=== PATIENT | female | born 1945 | race Caucasian/White ===

== ENCOUNTER → 2016-09-13 | Outpatient (REF) | payer MEDICARE, MEDICAID ==
[~2016-09-13] MED LIST: ALBU17IN INH; ALBU83IN INH; ASPI81TA PO; ATOR40TA PO; BREO1INH3 INH; INCR1INH INH; PARO40TA PO; PRED20TA PO; PROP80CA PO; RAMI10CA PO
[2016-09-13 18:05] LABS: ALBUMIN 3.4 GM/DL (3.2-5.2); ALBUMIN/GLOBULIN RATIO 1.06 (1.00-1.93); ALKALINE PHOSPHATASE 60 U/L (45-117); ALT/SGPT 22 U/L (12-78); ANION GAP 12 MEQ/L (8-16); AST/SGOT 15 U/L (15-37); BILIRUBIN,TOTAL 0.4 MG/DL (0.2-1.0); BLOOD UREA NITROGEN 16 MG/DL (7-18); CALCIUM LEVEL 9.5 MG/DL (8.8-10.2); CARBON DIOXIDE LEVEL 29 MEQ/L (21-32); CHLORIDE LEVEL 104 MEQ/L (98-107); CREATININE FOR GFR 0.81 MG/DL (0.55-1.02); GLOMERULAR FILTRATION RATE > 60.0 (>39); GLUCOSE, FASTING 142 MG/DL (83-110); POTASSIUM SERUM 3.5 MEQ/L (3.5-5.1); SODIUM LEVEL 145 MEQ/L (136-145); TOTAL PROTEIN 6.6 GM/DL (6.4-8.2)
== END ==
LOC: M SFHCPLAZ 15:18
PROVIDERS: ATTEND Nurse Practitioner Family
DX: I10 Essential (primary) hypertension (principal)

== ENCOUNTER → 2016-12-16 | Outpatient (REF) | payer MEDICARE, MEDICAID ==
[~2016-12-16] MED LIST changes: -PARO40TA PO; +PARO40TA2 PO
[2016-12-16 18:56] LABS: BASO # 0.1 K/mm3 (0.0-0.2); BASO % 0.4 % (0.0-1.0); EOS # 0.1 K/mm3 (0.0-0.50); EOS % 0.4 % (0.0-3.0); LARGE UNSTAINED CELL # 0.3 K/mm3 (0.0-0.4); LARGE UNSTAINED CELL % 1.8 % (0.0-4.0); LYMPH # 2.4 K/mm3 (1.5-4.5); MEAN CORPUSCULAR HEMOGLOBIN 29.9 pg (27.0-33.0); MEAN CORPUSCULAR HGB CONC 31.9 g/dl (32.0-36.5); MEAN CORPUSCULAR VOLUME 93.6 fl (80.0-96.0); MONO # 0.8 K/mm3 (0.0-0.8); MONO % 4.3 % (0.0-5.0); NEUTROPHILS # 14.7 K/mm3 (1.8-7.7); NEUTROPHILS % 80.1 % (36.0-66.0); PLATELET COUNT, AUTOMATED 319 k/mm3 (150-450); RED CELL DISTRIBUTION WIDTH 14.3 % (11.5-14.5); WHITE BLOOD COUNT 18.4 K/mm3 (4.0-10.0)
[2016-12-16 19:15] LABS: ALBUMIN 3.7 GM/DL (3.2-5.2); ALBUMIN/GLOBULIN RATIO 1.19 (1.00-1.93); ALKALINE PHOSPHATASE 59 U/L (45-117); ALT/SGPT 21 U/L (12-78); ANION GAP 6 MEQ/L (8-16); AST/SGOT 16 U/L (15-37); BILIRUBIN,TOTAL 0.4 MG/DL (0.2-1.0); BLOOD UREA NITROGEN 22 MG/DL (7-18); CALCIUM LEVEL 9.4 MG/DL (8.8-10.2); CARBON DIOXIDE LEVEL 30 MEQ/L (21-32); CHLORIDE LEVEL 102 MEQ/L (98-107); CREATININE FOR GFR 0.74 MG/DL (0.55-1.02); GLOMERULAR FILTRATION RATE > 60.0 (>39); GLUCOSE, FASTING 98 MG/DL (83-110); POTASSIUM SERUM 3.4 MEQ/L (3.5-5.1); SODIUM LEVEL 138 MEQ/L (136-145); TOTAL PROTEIN 6.8 GM/DL (6.4-8.2)
== END ==
LOC: M SFHCPLAZ 15:32
PROVIDERS: ATTEND Nurse Practitioner Family
DX: J44.1 Chronic obstructive pulmonary disease with (acute) exacerbation (principal); I10 Essential (primary) hypertension

== ENCOUNTER → 2017-01-31 | Outpatient (REF) | payer MEDICARE, MEDICAID ==
[~2017-01-31] MED LIST changes: +ASPI1TAB15 PO; -ATOR40TA PO; +ATOR40TA75 PO; +CLAR1TAB2 PO; +DOXY100T2 PO; +MUCI600T37 PO; +PARO10TA3 PO; +POTA10CA PO; +PRED10TA2 PO
[2017-01-31 18:23] LABS: ANION GAP 10 MEQ/L (8-16); BLOOD UREA NITROGEN 19 MG/DL (7-18); CALCIUM LEVEL 9.6 MG/DL (8.8-10.2); CARBON DIOXIDE LEVEL 28 MEQ/L (21-32); CHLORIDE LEVEL 105 MEQ/L (98-107); CREATININE FOR GFR 0.82 MG/DL (0.55-1.02); GLOMERULAR FILTRATION RATE > 60.0 (>39); GLUCOSE, FASTING 158 MG/DL (83-110); POTASSIUM SERUM 4.2 MEQ/L (3.5-5.1); SODIUM LEVEL 143 MEQ/L (136-145)
== END ==
LOC: M SFHCPLAZ 14:59
PROVIDERS: ATTEND Nurse Practitioner Family
DX: E87.6 Hypokalemia (principal)

== ENCOUNTER → 2017-03-24 | Outpatient (REF) | payer MEDICARE, MEDICAID ==
[2017-03-24 12:37] LABS: BASO % 0.2 % (0.0-1.0); LARGE UNSTAINED CELL # 0.2 K/mm3 (0.0-0.4); LARGE UNSTAINED CELL % 1.6 % (0.0-4.0); LYMPH # 0.6 K/mm3 (1.5-4.5); LYMPH % 5.4 % (24.0-44.0); MEAN CORPUSCULAR HEMOGLOBIN 29.9 pg (27.0-33.0); MEAN CORPUSCULAR VOLUME 93.5 fl (80.0-96.0); MONO # 0.3 K/mm3 (0.0-0.8); MONO % 2.8 % (0.0-5.0); NEUTROPHILS # 9.9 K/mm3 (1.8-7.7); NEUTROPHILS % 89.9 % (36.0-66.0); PLATELET COUNT, AUTOMATED 331 k/mm3 (150-450)
[2017-03-24 12:52] LABS: ALBUMIN 3.2 GM/DL (3.2-5.2); ALBUMIN/GLOBULIN RATIO 0.97 (1.00-1.93); ALKALINE PHOSPHATASE 55 U/L (45-117); ALT/SGPT 21 U/L (12-78); ANION GAP 11 MEQ/L (8-16); AST/SGOT 20 U/L (15-37); BILIRUBIN,TOTAL 0.7 MG/DL (0.2-1.0); BLOOD UREA NITROGEN 34 MG/DL (7-18); CALCIUM LEVEL 9.5 MG/DL (8.8-10.2); CARBON DIOXIDE LEVEL 27 MEQ/L (21-32); CHLORIDE LEVEL 105 MEQ/L (98-107); CREATININE FOR GFR 0.86 MG/DL (0.55-1.02); GLOMERULAR FILTRATION RATE > 60.0 (>39); GLUCOSE, FASTING 110 MG/DL (83-110); POTASSIUM SERUM 4.7 MEQ/L (3.5-5.1); SODIUM LEVEL 143 MEQ/L (136-145); TOTAL PROTEIN 6.5 GM/DL (6.4-8.2)
== END ==
LOC: M SFHCPLAZ 09:45
PROVIDERS: ATTEND Nurse Practitioner Family
DX: D72.829 Elevated white blood cell count, unspecified (principal); I10 Essential (primary) hypertension

== ENCOUNTER 2017-03-28 16:59 | Inpatient (IN) | payer MEDICARE, MEDICAID ==
[~2017-03-28] VITALS: Ht 165.1 cm; Wt 43.9 kg
[~2017-03-28 16:59] MED LIST changes: -ASPI1TAB15 PO; -CLAR1TAB2 PO; -DOXY100T2 PO; -MUCI600T37 PO; -PARO10TA3 PO; -POTA10CA PO; -PRED10TA2 PO
[2017-03-28] MEDS ORDERED: methylPREDNISolone INJ 125 MG/2 ML VIAL (J2930) IV ONE (17:30)
[2017-03-28] MEDS: IPRATROPIUM 0.5MG/ALBUTEROL 2.5MG INH SOL UD 3ML (DUONEB)(J7620) NEB PRN ×3 (17:37→18:09)
[2017-03-28 17:40] LABS: ABG BASE EXCESS 4.5 (-2.0-2.0); ABG HCO3 29.5 MEQ/L (22.0-26.0); ABG PARTIAL PRESSURE CO2 45.3 mmHg (35.0-45.0); ABG PARTIAL PRESSURE O2 58.8 mmHg (75.0-100.0); ABG STANDARD HCO3 28.3 MEQ/L (22.0-26.0); ABG TOTAL CO2 30.9 MEQ/L (23.0-31.0); ABG pH (ARTERIAL) 7.431 UNITS (7.350-7.450)
[2017-03-28 17:43] LABS: BASO % 0.2 % (0.0-1.0); EOS % 0.1 % (0.0-3.0); IMMATURE GRANULOCYTE % 0.4 % (0-0); LYMPH # 1.5 10^3/uL (1.5-4.5); LYMPH % 14.3 % (24.0-44.0); MEAN CORPUSCULAR HEMOGLOBIN 28.7 pg (27.0-33.0); MEAN CORPUSCULAR VOLUME 92.6 fl (80.0-96.0); MONO # 0.8 10^3/uL (0.0-0.8); MONO % 7.6 % (0.0-5.0); NEUTROPHILS # 7.9 10^3/uL (1.8-7.7); NEUTROPHILS % 77.4 % (36.0-66.0); PLATELET COUNT, AUTOMATED 367 10^3/uL (150-450); RED CELL DISTRIBUTION WIDTH 14.1 % (11.5-14.5); WHITE BLOOD COUNT 10.2 10^3/uL (4.0-10.0)
[2017-03-28 18:10] LABS: ALBUMIN 2.9 GM/DL (3.2-5.2); ALBUMIN/GLOBULIN RATIO 0.64 (1.00-1.93); ALKALINE PHOSPHATASE 66 U/L (45-117); ALT/SGPT 20 U/L (12-78); ANION GAP 8 MEQ/L (8-16); AST/SGOT 26 U/L (15-37); BILIRUBIN,DIRECT 0.1 MG/DL (0.0-0.2); BILIRUBIN,TOTAL 0.5 MG/DL (0.2-1.0); BLOOD UREA NITROGEN 24 MG/DL (7-18); CALCIUM LEVEL 9.5 MG/DL (8.8-10.2); CARBON DIOXIDE LEVEL 31 MEQ/L (21-32); CHLORIDE LEVEL 103 MEQ/L (98-107); CREATININE FOR GFR 0.75 MG/DL (0.55-1.02); GLOMERULAR FILTRATION RATE > 60.0 (>39); GLUCOSE, FASTING 149 MG/DL (83-110); POTASSIUM SERUM 4.8 MEQ/L (3.5-5.1); SODIUM LEVEL 142 MEQ/L (136-145); THYROXINE (T4) 12.5 UG/DL (4.5-12.0); TOTAL PROTEIN 7.4 GM/DL (6.4-8.2)
--- NOTE | 2017-03-28 18:17 | ECGEPIP ---
Stationary ECG Study [facility] - ED Test Date: 2017-03-28 Pat Name: RAYMOND HERNANDEZ Department: Room: - Gender: F Parker: adrienne : 1945 Requested By: Leeann Leung Order Number: [id number] Reading MD: Jason Albert Measurements Intervals Ethel Rate: 81 P: 85 MA: 132 QRS: 18 QRSD: 84 T: 52 QT: 351 QTc: 408 Interpretive Statements [employer] RBBB Electronically Signed On 03-28-2017 18:16:46 EDT by Jason Albert
[2017-03-28] MEDS ORDERED: MOXIFLOXACIN HCL 400 MG in APPROPRIATE DILUENT 1 EA IV ONE (18:30)
[2017-03-28 18:36] VITALS: O2SAT 90
[2017-03-28] MEDS ORDERED: ASPI1TAB15 PO (19:22)
[2017-03-28] MEDS ORDERED: PARO10TA3 PO (19:22)
[2017-03-28] MEDS ORDERED: MUCI600T37 PO (19:22)
[2017-03-28] MEDS ORDERED: POTA10CA PO (19:22)
[2017-03-28] MEDS ORDERED: PRED10TA2 PO (19:22)
[2017-03-28] MEDS ORDERED: CLAR1TAB2 PO (19:22)
[2017-03-28] MEDS ORDERED: ONDANSETRON 4MG/2ML VIAL (J2405) IV PRN (20:45)
[2017-03-28] MEDS ORDERED: ACETAMINOPHEN TAB 650MG DOSE (2X325MG) PO PRN (20:45)
--- NOTE | 2017-03-28 22:00 | REPUSA ---
CT of the chest without contrast Clinical statement: pneumonia. Technique: Multiple axial CT images were obtained with 5 mm cuts through the chest without administra tion of contrast. No comparison is available. Findings: There is no thoracic lymphadenopathy. Mild atherosclerotic calcifications are seen througho ut the thoracic aorta, without evidence of aneurysm. The visualized portions of the thyroid gland is unremarkable. There are no pericardial or pleural effusions. There are moderately severe emphysematou s changes with chronic interstitial scarring bilaterally. Small foci of infiltrate appear to represen t chronic changes, and not an acute process. Limited imaging of the upper abdomen does not demonstrat e any acute abnormalities. There are no suspicious osseous lesions. Impression: Moderate emphysema and COPD. Scattered chronic interstitial changes bilaterally. No focal acute infiltrate or fusion.
[2017-03-28 22:10] VITALS: BP 129/66
[2017-03-28] MEDS: PANTOPRAZOLE 40MG INJ (PROTONIX) (C9113) IV SCH (22:37)
[2017-03-28] MEDS: ATORVASTATIN 20 MG TAB PO SCH (22:38)
[2017-03-28] MEDS: POTASSIUM CHLORIDE 10 MEQ SR TABLET PO SCH (22:38)
[2017-03-28] MEDS: RAMIPRIL 5 MG CAP PO SCH (22:38)
[2017-03-28] MEDS: SENOKOT S TAB PO SCH (22:39)
[2017-03-28] MEDS: methylPREDNISolone INJ 40 MG/1 ML VIAL (J2920) IV SCH (23:42)
[2017-03-29] VITALS: BP 127/60
[2017-03-29] MEDS: IPRATROPIUM 0.5MG/ALBUTEROL 2.5MG INH SOL UD 3ML (DUONEB)(J7620) NEB SCH ×7 (00:01→23:31)
[2017-03-29 04:00] VITALS: BP 121/62
[2017-03-29 05:39] LABS: MEAN CORPUSCULAR HEMOGLOBIN 28.8 pg (27.0-33.0); MEAN CORPUSCULAR HGB CONC 31.3 g/dl (32.0-36.5); MEAN CORPUSCULAR VOLUME 91.9 fl (80.0-96.0); PLATELET COUNT, AUTOMATED 348 10^3/uL (150-450); RED CELL DISTRIBUTION WIDTH 14.2 % (11.5-14.5); WHITE BLOOD COUNT 8.9 10^3/uL (4.0-10.0)
[2017-03-29 05:44] LABS: ADD MANUAL DIFFER YES; DIFF SLIDE NUMBER 70
--- NOTE | 2017-03-29 06:13 | REP ---
PORTABLE CHEST, ONE VIEW: HISTORY: Dyspnea. COMPARISON: 12/20/2016. The lungs are hyperinflated. An increase in interstitial markings is present in the lungs. Patchy density is present in the right lower lobe consistent with an infiltrate. The heart is normal in size. The pulmonary vasculature is normal in appearance. IMPRESSION: 1. Findings consistent with COPD. 2. Right lower lobe infiltrate. Signed by Ezio Ivory MD 03/29/2017 08:47 A
[2017-03-29 06:15] LABS: ANION GAP 9 MEQ/L (8-16); BLOOD UREA NITROGEN 27 MG/DL (7-18); CALCIUM LEVEL 9.4 MG/DL (8.8-10.2); CARBON DIOXIDE LEVEL 28 MEQ/L (21-32); CHLORIDE LEVEL 104 MEQ/L (98-107); CREATININE FOR GFR 0.74 MG/DL (0.55-1.02); GLOMERULAR FILTRATION RATE > 60.0 (>39); GLUCOSE, FASTING 239 MG/DL (83-110); POTASSIUM SERUM 4.4 MEQ/L (3.5-5.1); SODIUM LEVEL 141 MEQ/L (136-145); T UPTAKE 39 % (30-39); THYROXINE (T4) 10.5 UG/DL (4.5-12.0)
--- NOTE | 2017-03-29 06:18 | HPE ---
DATE OF ADMISSION: 03/28/2017 PRIMARY CARE PROVIDER: Brie Barfield NP CHIEF COMPLAINT: Increasing shortness of breath for the past four days, increasing cough, increasing sleepiness and lethargy. PAST MEDICAL HISTORY: 1. Chronic pulmonary obstructive disease (COPD). 2. Emphysema follows with Dr. Cortez. 3. Chronic hypoxic respiratory failure, supposed to be on home oxygen, does not use it. 4. Hypertension. 5. Hyperlipidemia. 6. Dysthymic disorder. 7. Protein calorie malnutrition. HISTORY OF PRESENT ILLNESS: This is a 71-year-old female with history of advanced emphysema and COPD on chronic home oxygen and chronic steroid therapy who has been having increasing shortness of breath for the past four days and inability to ambulate outside the room and has been sleeping more and almost unable to get out of bed. Today, she could hardly walk three steps because of her shortness of breath. She was brought to the emergency room. In the emergency department (ED) the patient was noted to be severely hypoxic requiring oxygenation through a Venti mask, 40% to maintain a saturation of 88-90%. She initially had a chest x-ray done which showed COPD and infiltration. There was some concern about infiltrate and possible pneumonia so a CT of the chest was done which did not show any infiltrate or effusion, it showed emphysema and COPD and chronic interstitial changes and interstitial scarring bilaterally. The patient was admitted to the hospitalist service for COPD exacerbation. PAST SURGICAL HISTORY: 1. Cataract surgery. 2. Breast biopsy. ALLERGIES: AUGMENTIN produces hives. HOME MEDICATIONS: - albuterol sulfate nebulized solution three times a day as needed for shortness of breath - albuterol sulfate two puffs inhalation every 4 hours as needed - aspirin 81 mg daily - atorvastatin 40 mg at bedtime - Breo Ellipta 200/25 one inhalation daily - Mucinex 600 mg by mouth daily - Incruse Ellipta 62.5 mcg inhalation every evening - Claritin 10 mg by mouth daily - paroxetine 10 mg by mouth daily - potassium chloride 10 mEq by mouth every evening - prednisone 10 mg by mouth daily - ramipril 10 mg by mouth every evening SOCIAL HISTORY: The patient continues to smoke about 5-7 cigarettes per day. She does not abuse alcohol or any recreational drugs. FAMILY HISTORY: Nothing significant. REVIEW OF SYSTEMS: The patient denies any fever or chills. She denies any chest pain. She has increased shortness of breath, increased cough with greenish colored phlegm production. PHYSICAL EXAMINATION: VITAL SIGNS: Temperature 96.5, pulse 100, blood pressure 124/60, respiratory rate 24, pulse oximetry 95% with 40% Venturi mask. GENERAL: Patient is awake, alert, oriented times three; however, moderately distressed and unable to speak in full sentences. HEENT: Normocephalic atraumatic. Moist mucous membranes. Anicteric eyes. CHEST: Bilateral diffuse wheezing. CARDIOVASCULAR: S1, s2, regular, tachycardic. No murmurs, rubs, gallops. ABDOMEN: Soft, nontender, bowel sounds present. EXTREMITIES: No edema. LABORATORY DATA: WBC 10.2, hemoglobin 12.8, platelets 367. Sodium 142, potassium 4.8, chloride 103, bicarbonate 31, BUN 24, creatinine 0.75, glucose 149, lactate 2.1, liver function tests are normal. T4 12.5. ASSESSMENT AND PLAN: This is a 71-year-old female admitted for chronic pulmonary obstructive disease (COPD) exacerbation and acute on chronic hypoxic respiratory failure. PLAN: 1. COPD exacerbation. Will continue the patient on DuoNebs, formoterol and budesonide nebulizers. Will also give methylprednisone. Will also give doxicycline. The patient received one dose of Avelox in the emergency department (ED). 2. Acute on chronic respiratory failure with hypoxia. The patient is supposed to use home oxygen; however, she does not use it as per doctor so here the patient was noted to require 40% Venturi mask to maintain saturation of 88-90, respiratory rate was 24. Her arterial blood gas (ABG) also showed hypoxia. The patient will continue with oxygen supplementation to maintain saturation of 88%. 3. Hypertension. Will continue home medications. 4. Hyperlipidemia. Will continue with home medications. 5. Dysthymic disorder. Will continue with paroxetine. 6. Abnormal T4 level. Will repeat a full thyroid profile. 7. Protein calorie malnutrition. Possibly related to advanced COPD. 8. Deep venous thrombosis (DVT) prophylaxis. Has been ordered. 9. Gastrointestinal (GI) prophylaxis. Will start the patient on pantoprazole as the patient is going to be steroids.
[2017-03-29] MEDS: FORMOTEROL FUMARATE 20 MCG/2 ML INHALATION SOLUTION (PERFOROMIST) INH SCH ×2 (07:59→19:52)
[2017-03-29] MEDS: BUDESONIDE 0.5 MG/2 ML INHALATION SUSPENSION INH SCH ×2 (07:59→19:52)
[2017-03-29 08:00] VITALS: BP 120/57
[2017-03-29] MEDS: ENOXAPARIN 30 MG/0.3 ML SYR (J1650) SC SCH (09:31)
[2017-03-29] MEDS: ASPIRIN 81 MG ENTERIC TAB PO SCH (09:31)
[2017-03-29] MEDS: DOXYCYCLINE HYCLATE 100 MG TAB PO SCH ×2 (09:31→20:47)
[2017-03-29] MEDS: guaiFENesin ER 600 MG TAB PO SCH (09:31)
[2017-03-29] MEDS: SENOKOT S TAB PO SCH ×2 (09:31→20:46)
[2017-03-29] MEDS: PARoxetine 10MG TABLET PO SCH (09:31)
[2017-03-29] MEDS: methylPREDNISolone INJ 40 MG/1 ML VIAL (J2920) IV SCH ×3 (09:32→23:29)
--- NOTE | 2017-03-29 11:09 | IPNPDOC ---
Subjective Date Seen The patient was seen on 03/29/17. Subjective Chief Complaint/HPI The patient is a 71-year-old female admitted with a reason for visit of Copd Exacerbation;Pneumonia. Events since last encounter Breathing feels better today Constitutional: Denies: Chills, Fever Pulmonary: Reports: Dyspnea (improved), Denies: Cough Cardiovascular: Denies: Chest Pain, Palpitations Gastrointestinal: Denies: Nausea, Vomiting, Abdominal Pain, Diarrhea, Constipation Objective Physical Examination General Exam: Positive: Alert, Moderate Distress (Wearing enti mask - breathing is labored at rest, but patient says her breathing is better) Chest Exam: Positive: Clear to auscultation (few scatterd exp wheezes with somewhat decreased BS) Heart Exam: Positive: Regular Rhythm, Negative: Rate Normal, Murmurs Abdomen Exam: Positive: Normal bowel sounds, Soft, Negative: Tenderness Extremity Exam: Negative: Edema Assessment /Plan Problems (1) COPD exacerbation Status: Acute Problem Text: Continue IV Solumedrol Doxycycline Oxygen via Venti mask currently - wean as tolerates Continue Pulmicort and Formoterol 03/28/17 CT chest: Moderate emphysema and COPD. Scattered chronic interstitial changes bilaterally. No focal acute infiltrate or fusion. (2) Hypertension Status: Chronic Response to Treatment: Stable (3) Hyperthyroidism Status: Chronic Problem Text: favor subclinical hyper 03/29/17 TSH <0.005, FTI 4.1-since 03/2016 up 11 pounds (88 to 99) s palpitations , check thyroid Ab-repeat as outpatient when not sick 03/15/16 TSH 0.3 Plan/VTE VTE Prophylaxis Ordered?: Yes (Lovenox) VS, I&O, 24H, Fishbone Vital Signs/I&O Vital Signs Date Time Temp Pulse Resp B/P (MAP) Pulse Ox O2 Delivery O2 Flow Rate FiO2 03/29/17 08:00 98.1 87 18 120/57 (78) 96 Venturi Mask 15.0 03/29/17 08:00 50 I&O- Last 24 Hours up to 6 AM 03/30/17 06:00 Intake Total 60 ml Output Total 300 ml Balance -240 ml Laboratory Data 24H LABS Laboratory Tests 2 03/28/17 17:23: White Blood Count 10.2H, Red Blood Count 4.46, Hemoglobin 12.8, Hematocrit 41.3 , Mean Corpuscular Volume 92.6, Mean Corpuscular Hemoglobin 28.7, Mean Corpuscular Hemoglobin Concent 31.0L, Red Cell Distribution Width 14.1, Platelet Count 367, Neutrophils (%) (Auto) 77.4H, Lymphocytes (%) (Auto) 14.3L, Monocytes (%) (Auto) 7.6H, Eosinophils (%) (Auto) 0.1, Basophils (%) (Auto) 0.2 , Neutrophils # (Auto) 7.9H, Lymphocytes # (Auto) 1.5, Monocytes # (Auto) 0.8, Eosinophils # (Auto) 0.0, Basophils # (Auto) 0.0, Immature Granulocyte # (Auto) 0.0, Nucleated Red Blood Cells % (auto) 0.0, Blood Gas Bicarbonate Standard 28.3H, Arterial Blood pH 7.431, Arterial Blood Partial Pressure CO2 45.3H, Arterial Blood Partial Pressure O2 58.8L, Arterial Blood Total CO2 30.9, Arterial Blood HCO3 29.5H, Arterial Blood Base Excess 4.5H, Arterial Blood Oxygen Saturation 89.3L, Anion Gap 8, Glomerular Filtration Rate > 60.0, Calcium Level 9.5, Aspartate Amino Transf (AST/SGOT) 26, Alanine Aminotransferase (ALT/SGPT) 20, Alkaline Phosphatase 66, Total Bilirubin 0.5, Direct Bilirubin 0.1, Total Creatine Kinase 65, Creatine Kinase MB 1.0, Creatine Kinase MB Relative Index 1.53, Troponin I 0.02, Total Protein 7.4, Albumin 2.9L, Albumin/Globulin Ratio 0.64L, Thyroxine (T4) 12.5H 03/28/17 19:04: Lactic Acid Level 2.1*H 03/28/17 23:32: Lactic Acid Followup at 4 Hours 1.4 03/29/17 05:15: White Blood Count 8.9, Red Blood Count 3.82L, Hemoglobin 11.0L, Hematocrit 35.1L , Mean Corpuscular Volume 91.9, Mean Corpuscular Hemoglobin 28.8, Mean Corpuscular Hemoglobin Concent 31.3L, Red Cell Distribution Width 14.2, Platelet Count 348, Neutrophils (%) (Auto) , Lymphocytes # (Auto) , Anion Gap 9 , Glomerular Filtration Rate > 60.0, Calcium Level 9.4, Thyroxine (T4) 10.5, Neutrophils 89H, Lymphocytes (Manual) 11L, Platelet Estimate NORMAL, Red Blood Cell Morphology NORMAL, Blood Urea Nitrogen 27H, Creatinine 0.74, Sodium Level 141, Potassium Level 4.4, Chloride Level 104, Carbon Dioxide Level 28, Thyroid Stimulating Hormone (TSH) < 0.005L, Free Thyroxine Index 4.1, Triiodothyronine ( T3) Uptake 39 CBC/BMP Laboratory Tests 03/28/17 17:23 Red Blood Count 4.46, Mean Corpuscular Volume 92.6, Mean Corpuscular Hemoglobin 28.7, Mean Corpuscular Hemoglobin Concent 31.0 L, Red Cell Distribution Width 14.1, Neutrophils (%) (Auto) 77.4 H, Lymphocytes (%) (Auto) 14.3 L, Monocytes (% ) (Auto) 7.6 H, Eosinophils (%) (Auto) 0.1, Basophils (%) (Auto) 0.2, Neutrophils # (Auto) 7.9 H, Lymphocytes # (Auto) 1.5, Monocytes # (Auto) 0.8, Eosinophils # (Auto) 0.0, Basophils # (Auto) 0.0 03/29/17 05:15 Red Blood Count 3.82 L, Mean Corpuscular Volume 91.9, Mean Corpuscular Hemoglobin 28.8, Mean Corpuscular Hemoglobin Concent 31.3 L, Red Cell Distribution Width 14.2, Neutrophils (%) (Auto) , Lymphocytes # (Auto) , Calcium Level 9.4 Microbiology Microbiology 03/28/17 Blood Culture, Received Pending 03/28/17 Blood Culture, Received Pending FARIDEH TRAVIS PA-C Mar 29, 2017 11:09 Jamal Ruiz M.D. Mar 29, 2017 16:23
[2017-03-29 12:00] VITALS: BP 126/65
[2017-03-29 16:00] VITALS: BP 130/68
[2017-03-29] MEDS ORDERED: MOXIFLOXACIN HCL 400 MG in APPROPRIATE DILUENT 1 EA IV SCH (18:00)
[2017-03-29 20:00] VITALS: BP 158/67
[2017-03-29] MEDS: PANTOPRAZOLE 40MG INJ (PROTONIX) (C9113) IV SCH (20:46)
[2017-03-29] MEDS: POTASSIUM CHLORIDE 10 MEQ SR TABLET PO SCH (20:47)
[2017-03-29] MEDS: ATORVASTATIN 20 MG TAB PO SCH (20:47)
[2017-03-29] MEDS: RAMIPRIL 5 MG CAP PO SCH (20:48)
[2017-03-30] VITALS: BP 148/65
[2017-03-30] MEDS: IPRATROPIUM 0.5MG/ALBUTEROL 2.5MG INH SOL UD 3ML (DUONEB)(J7620) NEB SCH ×5 (03:20→20:00)
[2017-03-30 04:00] VITALS: BP 100/50
[2017-03-30 05:24] LABS: IMMATURE GRANULOCYTE % 0.8 % (0-0); LYMPH # 0.7 10^3/uL (1.5-4.5); MEAN CORPUSCULAR HEMOGLOBIN 28.6 pg (27.0-33.0); MEAN CORPUSCULAR HGB CONC 31.2 g/dl (32.0-36.5); MEAN CORPUSCULAR VOLUME 91.8 fl (80.0-96.0); MONO # 0.5 10^3/uL (0.0-0.8); MONO % 4.6 % (0.0-5.0); NEUTROPHILS # 8.8 10^3/uL (1.8-7.7); NEUTROPHILS % 87.6 % (36.0-66.0); PLATELET COUNT, AUTOMATED 364 10^3/uL (150-450); WHITE BLOOD COUNT 10.1 10^3/uL (4.0-10.0)
[2017-03-30 05:53] LABS: ANION GAP 5 MEQ/L (8-16); BLOOD UREA NITROGEN 33 MG/DL (7-18); CALCIUM LEVEL 9.3 MG/DL (8.8-10.2); CARBON DIOXIDE LEVEL 29 MEQ/L (21-32); CHLORIDE LEVEL 106 MEQ/L (98-107); FREE T4 1.55 NG/DL (0.76-1.46); GLOMERULAR FILTRATION RATE > 60.0 (>39); GLUCOSE, FASTING 217 MG/DL (83-110); POTASSIUM SERUM 4.5 MEQ/L (3.5-5.1); SODIUM LEVEL 140 MEQ/L (136-145)
[2017-03-30] MEDS: FORMOTEROL FUMARATE 20 MCG/2 ML INHALATION SOLUTION (PERFOROMIST) INH SCH ×2 (07:18→20:15)
[2017-03-30] MEDS: BUDESONIDE 0.5 MG/2 ML INHALATION SUSPENSION INH SCH ×2 (07:18→20:15)
[2017-03-30 08:00] VITALS: BP 146/69
[2017-03-30] MEDS: guaiFENesin ER 600 MG TAB PO SCH (08:32)
[2017-03-30] MEDS: DOXYCYCLINE HYCLATE 100 MG TAB PO SCH ×2 (08:32→20:42)
[2017-03-30] MEDS: ASPIRIN 81 MG ENTERIC TAB PO SCH (08:32)
[2017-03-30] MEDS: methylPREDNISolone INJ 40 MG/1 ML VIAL (J2920) IV SCH (08:32)
[2017-03-30] MEDS: ENOXAPARIN 30 MG/0.3 ML SYR (J1650) SC SCH (08:32)
[2017-03-30] MEDS: SENOKOT S TAB PO SCH ×2 (08:32→20:43)
[2017-03-30] MEDS: PARoxetine 10MG TABLET PO SCH (08:32)
[2017-03-30 10:47] LABS: THYROID PEROXIDASE ANTIBODY < 28.0 U/ML (<60.0)
[2017-03-30 12:00] VITALS: BP 138/70
--- NOTE | 2017-03-30 12:57 | IPNPDOC ---
Subjective Date Seen The patient was seen on 03/30/17. Subjective Chief Complaint/HPI The patient is a 71-year-old female admitted with a reason for visit of Copd Exacerbation;Pneumonia. Events since last encounter breathing feels better - denies dyspnea Constitutional: Denies: Chills, Fever Pulmonary: Denies: Dyspnea, Cough Cardiovascular: Denies: Chest Pain, Palpitations Gastrointestinal: Denies: Nausea, Vomiting, Abdominal Pain, Diarrhea, Constipation Objective Physical Examination General Exam: Positive: Alert, Moderate Distress (Breathing appears more comfortable today) Chest Exam: Positive: Clear to auscultation, Negative: Rales, Rhonchi, Wheezing Heart Exam: Positive: Regular Rhythm, Negative: Rate Normal, Murmurs Abdomen Exam: Positive: Normal bowel sounds, Soft, Negative: Tenderness Extremity Exam: Negative: Edema Assessment /Plan Problems (1) COPD exacerbation Status: Acute Problem Text: 03/30 - improving - Continue to wean oxygen gradually - now on 3 liters NC - will likely need 2-3 liters at home D/c IV Solumedrol and start lower dose PO prednisone Doxycycline D2 Continue Pulmicort and Formoterol 03/28/17 CT chest: Moderate emphysema and COPD. Scattered chronic interstitial changes bilaterally. No focal acute infiltrate or fusion. (2) Hypertension Status: Chronic Response to Treatment: Stable (3) Hyperthyroidism Status: Chronic Problem Text: favor subclinical hyper : Thyroid Ab negative; recheck thyroid panel as an outpatient 03/29/17 TSH <0.005, FTI 4.1-since 03/2016 up 11 pounds (88 to 99) s palpitations , check thyroid Ab-repeat as outpatient when not sick 03/15/16 TSH 0.3 Plan/VTE VTE Prophylaxis Ordered?: Yes (Lovenox) Plan Family Medicine Attending Note: I saw and examined Ms. Hermosillo this morning; I discussed her case with JUAN J Garcia and I agree with her note as documented. Per notes, it sounds like she is noncompliant with her home O2, which likely led to this hospitalization. Continue prednisone and nebs as above. (KES) VS, I&O, 24H, Fishbone Vital Signs/I&O Vital Signs Date Time Temp Pulse Resp B/P (MAP) Pulse Ox O2 Delivery O2 Flow Rate FiO2 03/30/17 12:01 Nasal Cannula 3.0 03/30/17 08:00 98.1 81 18 146/69 (94) 99 03/29/17 08:00 50 I&O- Last 24 Hours up to 6 AM 03/31/17 05:59 Intake Total 240 ml Output Total 200 ml Balance 40 ml Laboratory Data 24H LABS Laboratory Tests 2 03/29/17 16:37: Thyroid Stimulating Hormone (TSH) < 0.005L, Anti-Thyroglobulin Antibody < 15.0, Thyroid Peroxidase Antibodies < 28.0 03/30/17 04:56: Thyroid Stimulating Hormone (TSH) < 0.005L, White Blood Count 10.1H, Red Blood Count 3.53L, Hemoglobin 10.1L, Hematocrit 32.4L, Mean Corpuscular Volume 91.8, Mean Corpuscular Hemoglobin 28.6, Mean Corpuscular Hemoglobin Concent 31.2L, Red Cell Distribution Width 14.0, Platelet Count 364, Neutrophils (%) (Auto) 87.6H, Lymphocytes (%) (Auto) 7.0L, Monocytes (%) (Auto) 4.6, Eosinophils (%) ( Auto) 0.0, Basophils (%) (Auto) 0.0, Neutrophils # (Auto) 8.8H, Lymphocytes # ( Auto) 0.7L, Monocytes # (Auto) 0.5, Eosinophils # (Auto) 0.0, Basophils # (Auto ) 0.0, Immature Granulocyte # (Auto) 0.1H, Nucleated Red Blood Cells % (auto) 0.0, Anion Gap 5L, Glomerular Filtration Rate > 60.0, Blood Urea Nitrogen 33H, Creatinine 0.80, Sodium Level 140, Potassium Level 4.5, Chloride Level 106, Carbon Dioxide Level 29, Calcium Level 9.3, Free Thyroxine 1.55H CBC/BMP Laboratory Tests 03/30/17 04:56 Red Blood Count 3.53 L, Mean Corpuscular Volume 91.8, Mean Corpuscular Hemoglobin 28.6, Mean Corpuscular Hemoglobin Concent 31.2 L, Red Cell Distribution Width 14.0, Neutrophils (%) (Auto) 87.6 H, Lymphocytes (%) (Auto) 7.0 L, Monocytes (%) (Auto) 4.6, Eosinophils (%) (Auto) 0.0, Basophils (%) (Auto ) 0.0, Neutrophils # (Auto) 8.8 H, Lymphocytes # (Auto) 0.7 L, Monocytes # (Auto ) 0.5, Eosinophils # (Auto) 0.0, Basophils # (Auto) 0.0, Calcium Level 9.3 Microbiology Microbiology 03/28/17 Blood Culture - Preliminary, Resulted No growth after 24 hours . All specim... 03/28/17 Blood Culture - Preliminary, Resulted No growth after 24 hours . All specim... FARIDEH TRAVIS PA-C Mar 30, 2017 12:57 JAYLAN HUMPHRIES MD Mar 30, 2017 14:59
[2017-03-30 16:00] VITALS: BP 150/70
[2017-03-30 20:00] VITALS: BP 142/62
[2017-03-30] MEDS: PANTOPRAZOLE 40MG INJ (PROTONIX) (C9113) IV SCH (20:41)
[2017-03-30] MEDS: ATORVASTATIN 20 MG TAB PO SCH (20:42)
[2017-03-30] MEDS: RAMIPRIL 5 MG CAP PO SCH (20:42)
[2017-03-30] MEDS: predniSONE 20 MG TAB PO SCH (20:42)
[2017-03-30] MEDS: POTASSIUM CHLORIDE 10 MEQ SR TABLET PO SCH (20:43)
[2017-03-31] VITALS (7 sets, daily range): BP systolic 99–128; BP diastolic 50–66
[2017-03-31] MEDS: IPRATROPIUM 0.5MG/ALBUTEROL 2.5MG INH SOL UD 3ML (DUONEB)(J7620) NEB SCH ×7 (04:00→23:12)
[2017-03-31 05:54] LABS: IMMATURE GRANULOCYTE % 0.6 % (0-0); LYMPH # 1.1 10^3/uL (1.5-4.5); LYMPH % 11.5 % (24.0-44.0); MEAN CORPUSCULAR HEMOGLOBIN 28.7 pg (27.0-33.0); MEAN CORPUSCULAR VOLUME 92.6 fl (80.0-96.0); MONO # 0.6 10^3/uL (0.0-0.8); MONO % 5.8 % (0.0-5.0); NEUTROPHILS # 8.1 10^3/uL (1.8-7.7); NEUTROPHILS % 82.1 % (36.0-66.0); PLATELET COUNT, AUTOMATED 373 10^3/uL (150-450); WHITE BLOOD COUNT 9.8 10^3/uL (4.0-10.0)
[2017-03-31 06:11] LABS: ANION GAP 4 MEQ/L (8-16); BLOOD UREA NITROGEN 34 MG/DL (7-18); CALCIUM LEVEL 9.1 MG/DL (8.8-10.2); CARBON DIOXIDE LEVEL 30 MEQ/L (21-32); CHLORIDE LEVEL 107 MEQ/L (98-107); CREATININE FOR GFR 0.69 MG/DL (0.55-1.02); GLOMERULAR FILTRATION RATE > 60.0 (>39); GLUCOSE, FASTING 142 MG/DL (83-110); POTASSIUM SERUM 4.7 MEQ/L (3.5-5.1); SODIUM LEVEL 141 MEQ/L (136-145)
[2017-03-31] MEDS: FORMOTEROL FUMARATE 20 MCG/2 ML INHALATION SOLUTION (PERFOROMIST) INH SCH ×2 (07:09→19:25)
[2017-03-31] MEDS: BUDESONIDE 0.5 MG/2 ML INHALATION SUSPENSION INH SCH ×2 (07:09→19:25)
[2017-03-31] MEDS: predniSONE 20 MG TAB PO SCH ×2 (08:21→20:41)
[2017-03-31] MEDS: ASPIRIN 81 MG ENTERIC TAB PO SCH (08:21)
[2017-03-31] MEDS: ENOXAPARIN 30 MG/0.3 ML SYR (J1650) SC SCH (08:21)
[2017-03-31] MEDS: guaiFENesin ER 600 MG TAB PO SCH (08:21)
[2017-03-31] MEDS: PARoxetine 10MG TABLET PO SCH (08:21)
[2017-03-31] MEDS: DOXYCYCLINE HYCLATE 100 MG TAB PO SCH ×2 (08:21→20:41)
[2017-03-31] MEDS: SENOKOT S TAB PO SCH ×2 (08:21→20:43)
--- NOTE | 2017-03-31 10:09 | IPNPDOC ---
Subjective Date Seen The patient was seen on 03/31/17. Subjective Chief Complaint/HPI The patient is a 71-year-old female admitted with a reason for visit of Copd Exacerbation;Pneumonia. Events since last encounter Patient feels her brething has improved from admission and is back to her usual baseline Constitutional: Denies: Chills, Fever Pulmonary: Reports: Dyspnea (chronic), Denies: Cough Cardiovascular: Denies: Chest Pain Gastrointestinal: Denies: Nausea, Vomiting, Abdominal Pain, Diarrhea, Constipation Objective Physical Examination General Exam: Positive: Alert, Moderate Distress (Breathing appears more comfortable today), Other (frail and cachectic) Chest Exam: Positive: Clear to auscultation, Negative: Rales, Rhonchi, Wheezing Heart Exam: Positive: Regular Rhythm, Negative: Rate Normal, Murmurs Abdomen Exam: Positive: Normal bowel sounds, Soft, Negative: Tenderness Extremity Exam: Negative: Edema Assessment /Plan Problems (1) COPD exacerbation Status: Acute Problem Text: 03/30 - improving - Continue to wean oxygen gradually - now on 1- 2 liters NC - Has 2 liters at home Continue PO prednisone Doxycycline D3 Get PT - move to floor - probable d/c in am if safe and able to maintain oxygen levels with ambulation Continue Pulmicort and Formoterol 03/28/17 CT chest: Moderate emphysema and COPD. Scattered chronic interstitial changes bilaterally. No focal acute infiltrate or fusion. (2) Hypertension Status: Chronic Response to Treatment: Stable (3) Hyperthyroidism Status: Chronic Problem Text: favor subclinical hyper TSH low/Free T4 slightly high - will need outpatient follow-up 03/30: Thyroid Ab negative; recheck thyroid panel as an outpatient 03/29/17 TSH <0.005, FTI 4.1-since 03/2016 up 11 pounds (88 to 99) s palpitations , check thyroid Ab-repeat as outpatient when not sick 03/15/16 TSH 0.3 Plan/VTE VTE Prophylaxis Ordered?: Yes (Lovenox) Plan Family Medicine Attending Note: I saw and examined Ms. Hermosillo early this morning ; I discussed her care with JUAN J Garcia and I agree with her note above. Patient currently on 2 L O2, which is consistent with her baseline - I talked with her this morning about the importance of using her O2 as prescribed at home. PT eval ordered for today - consider d/c tomorrow if safe. (KES) VS, I&O, 24H, Fishbone Vital Signs/I&O Vital Signs Date Time Temp Pulse Resp B/P (MAP) Pulse Ox O2 Delivery O2 Flow Rate FiO2 03/31/17 08:00 98.4 80 22 105/58 (74) 95 Nasal Cannula 03/31/17 07:40 2.0 03/29/17 08:00 50 I&O- Last 24 Hours up to 6 AM 04/01/17 06:00 Intake Total 240 ml Output Total 0 ml Balance 240 ml Laboratory Data 24H LABS Laboratory Tests 2 03/31/17 05:12: White Blood Count 9.8, Red Blood Count 3.38L, Hemoglobin 9.7L, Hematocrit 31.3L , Mean Corpuscular Volume 92.6, Mean Corpuscular Hemoglobin 28.7, Mean Corpuscular Hemoglobin Concent 31.0L, Red Cell Distribution Width 14.0, Platelet Count 373, Neutrophils (%) (Auto) 82.1H, Lymphocytes (%) (Auto) 11.5L, Monocytes (%) (Auto) 5.8H, Eosinophils (%) (Auto) 0.0, Basophils (%) (Auto) 0.0 , Neutrophils # (Auto) 8.1H, Lymphocytes # (Auto) 1.1L, Monocytes # (Auto) 0.6, Eosinophils # (Auto) 0.0, Basophils # (Auto) 0.0, Immature Granulocyte # (Auto) 0.1H, Nucleated Red Blood Cells % (auto) 0.0, Anion Gap 4L, Glomerular Filtration Rate > 60.0, Blood Urea Nitrogen 34H, Creatinine 0.69, Sodium Level 141, Potassium Level 4.7, Chloride Level 107, Carbon Dioxide Level 30, Calcium Level 9.1 CBC/BMP Laboratory Tests 03/31/17 05:12 Red Blood Count 3.38 L, Mean Corpuscular Volume 92.6, Mean Corpuscular Hemoglobin 28.7, Mean Corpuscular Hemoglobin Concent 31.0 L, Red Cell Distribution Width 14.0, Neutrophils (%) (Auto) 82.1 H, Lymphocytes (%) (Auto) 11.5 L, Monocytes (%) (Auto) 5.8 H, Eosinophils (%) (Auto) 0.0, Basophils (%) ( Auto) 0.0, Neutrophils # (Auto) 8.1 H, Lymphocytes # (Auto) 1.1 L, Monocytes # ( Auto) 0.6, Eosinophils # (Auto) 0.0, Basophils # (Auto) 0.0, Calcium Level 9.1 Microbiology Microbiology 03/28/17 Blood Culture - Preliminary, Resulted No Growth after 48 hours. All Specime... 03/28/17 Blood Culture - Preliminary, Resulted No Growth after 48 hours. All Specime... FARIDEH TRAVIS PA-C Mar 31, 2017 10:09 JAYLAN HUMPHRIES MD Mar 31, 2017 15:01
[2017-03-31] MEDS: ATORVASTATIN 20 MG TAB PO SCH (20:41)
[2017-03-31] MEDS: PANTOPRAZOLE 40MG INJ (PROTONIX) (C9113) IV SCH (20:41)
[2017-03-31] MEDS: POTASSIUM CHLORIDE 10 MEQ SR TABLET PO SCH (20:42)
[2017-03-31] MEDS: RAMIPRIL 5 MG CAP PO SCH (20:46)
[2017-04-01] MEDS: IPRATROPIUM 0.5MG/ALBUTEROL 2.5MG INH SOL UD 3ML (DUONEB)(J7620) NEB SCH ×6 (03:13→23:17)
[2017-04-01 06:00] VITALS: BP 117/56
[2017-04-01 06:20] LABS: BASO % 0.1 % (0.0-1.0); IMMATURE GRANULOCYTE % 0.9 % (0-0); LYMPH # 1.1 10^3/uL (1.5-4.5); LYMPH % 12.6 % (24.0-44.0); MEAN CORPUSCULAR HEMOGLOBIN 28.6 pg (27.0-33.0); MEAN CORPUSCULAR HGB CONC 31.2 g/dl (32.0-36.5); MEAN CORPUSCULAR VOLUME 91.8 fl (80.0-96.0); MONO # 0.5 10^3/uL (0.0-0.8); MONO % 5.8 % (0.0-5.0); NEUTROPHILS # 7.3 10^3/uL (1.8-7.7); NEUTROPHILS % 80.6 % (36.0-66.0); PLATELET COUNT, AUTOMATED 414 10^3/uL (150-450); RED CELL DISTRIBUTION WIDTH 13.9 % (11.5-14.5)
[2017-04-01 06:40] LABS: ANION GAP 5 MEQ/L (8-16); BLOOD UREA NITROGEN 28 MG/DL (7-18); CALCIUM LEVEL 9.3 MG/DL (8.8-10.2); CARBON DIOXIDE LEVEL 32 MEQ/L (21-32); CHLORIDE LEVEL 104 MEQ/L (98-107); CREATININE FOR GFR 0.84 MG/DL (0.55-1.02); GLOMERULAR FILTRATION RATE > 60.0 (>39); GLUCOSE, FASTING 164 MG/DL (83-110); POTASSIUM SERUM 4.7 MEQ/L (3.5-5.1); SODIUM LEVEL 141 MEQ/L (136-145)
[2017-04-01] MEDS: BUDESONIDE 0.5 MG/2 ML INHALATION SUSPENSION INH SCH ×2 (07:12→20:02)
[2017-04-01] MEDS: FORMOTEROL FUMARATE 20 MCG/2 ML INHALATION SOLUTION (PERFOROMIST) INH SCH ×2 (07:12→20:02)
[2017-04-01] MEDS: PARoxetine 10MG TABLET PO SCH (08:05)
[2017-04-01] MEDS: ASPIRIN 81 MG ENTERIC TAB PO SCH (08:05)
[2017-04-01] MEDS: SENOKOT S TAB PO SCH ×2 (08:05→20:42)
[2017-04-01] MEDS: DOXYCYCLINE HYCLATE 100 MG TAB PO SCH ×2 (08:05→20:42)
[2017-04-01] MEDS: guaiFENesin ER 600 MG TAB PO SCH (08:05)
[2017-04-01] MEDS: predniSONE 20 MG TAB PO SCH ×2 (08:05→20:42)
[2017-04-01] MEDS: ENOXAPARIN 30 MG/0.3 ML SYR (J1650) SC SCH (08:06)
--- NOTE | 2017-04-01 11:21 | IPNPDOC ---
Subjective Date Seen The patient was seen on 04/01/17. Subjective Chief Complaint/HPI The patient is a 71-year-old female admitted with a reason for visit of Copd Exacerbation;Pneumonia. Events since last encounter Per PT, patient desaturates to 83% on 1 liter NC with ambulating 12 feet. They will try to increase her oxygen with ambulation to see if she maintaines her sats. Constitutional: Denies: Chills, Fever Pulmonary: Reports: Dyspnea (at baseline), Denies: Cough Cardiovascular: Denies: Chest Pain, Palpitations Gastrointestinal: Denies: Nausea, Vomiting, Abdominal Pain, Diarrhea, Constipation Objective Physical Examination General Exam: Positive: Alert, No Acute Distress, Other (frail and cachectic) Chest Exam: Positive: Clear to auscultation, Negative: Rales, Rhonchi, Wheezing Heart Exam: Positive: Regular Rhythm, Negative: Rate Normal, Murmurs Abdomen Exam: Positive: Normal bowel sounds, Soft, Negative: Tenderness Extremity Exam: Negative: Edema Assessment /Plan Problems (1) COPD exacerbation Status: Acute Problem Text: 04/01- improving - Continue to wean oxygen gradually - now on 1- 2 liters NC - Has 2 liters at home Per PT, patient desaturates to 83% on 1 liter NC with ambulating 12 feet. They will try to increase her oxygen with ambulation to see if she maintains her sats. she has to go up 22 steps to get to her room at home I attempted to contact family - no answer - left message Continue PO prednisone Doxycycline D4 Continue Pulmicort and Formoterol 03/28/17 CT chest: Moderate emphysema and COPD. Scattered chronic interstitial changes bilaterally. No focal acute infiltrate or fusion. (2) Hypertension Status: Chronic Response to Treatment: Stable (3) Hyperthyroidism Status: Chronic Problem Text: favor subclinical hyper TSH low/Free T4 slightly high - will need outpatient follow-up 03/30: Thyroid Ab negative; recheck thyroid panel as an outpatient 03/29/17 TSH <0.005, FTI 4.1-since 03/2016 up 11 pounds (88 to 99) s palpitations , check thyroid Ab-repeat as outpatient when not sick 03/15/16 TSH 0.3 Plan/VTE VTE Prophylaxis Ordered?: Yes (Lovenox) Plan Family Medicine Attending Note: I saw and examined Ms. Hermosillo this morning. I discussed her care with Zakia Wetterhahn, RPA-C and I agree with her note as documented. Per PT, patient ambulated on 3 L/min of O2 and O2 sats dropped to 87%; in addition, PT believes she needs 1 more day of PT in order to navigate stairs at home. (KES) VS, I&O, 24H, Fishbone Vital Signs/I&O Vital Signs Date Time Temp Pulse Resp B/P (MAP) Pulse Ox O2 Delivery O2 Flow Rate FiO2 04/01/17 06:00 97.6 65 20 117/56 (76) 97 Nasal Cannula 2.0 03/29/17 08:00 50 I&O- Last 24 Hours up to 6 AM 04/02/17 05:59 Intake Total 280 ml Output Total 450 ml Balance -170 ml Laboratory Data 24H LABS Laboratory Tests 2 04/01/17 05:53: White Blood Count 9.0, Red Blood Count 4.16, Hemoglobin 11.9#L, Hematocrit 38.2 , Mean Corpuscular Volume 91.8, Mean Corpuscular Hemoglobin 28.6, Mean Corpuscular Hemoglobin Concent 31.2L, Red Cell Distribution Width 13.9, Platelet Count 414, Neutrophils (%) (Auto) 80.6H, Lymphocytes (%) (Auto) 12.6L, Monocytes (%) (Auto) 5.8H, Eosinophils (%) (Auto) 0.0, Basophils (%) (Auto) 0.1 , Neutrophils # (Auto) 7.3, Lymphocytes # (Auto) 1.1L, Monocytes # (Auto) 0.5, Eosinophils # (Auto) 0.0, Basophils # (Auto) 0.0, Immature Granulocyte # (Auto) 0.1H, Nucleated Red Blood Cells % (auto) 0.0, Anion Gap 5L, Glomerular Filtration Rate > 60.0, Blood Urea Nitrogen 28H, Creatinine 0.84, Sodium Level 141, Potassium Level 4.7, Chloride Level 104, Carbon Dioxide Level 32, Calcium Level 9.3 CBC/BMP Laboratory Tests 04/01/17 05:53 Red Blood Count 4.16, Mean Corpuscular Volume 91.8, Mean Corpuscular Hemoglobin 28.6, Mean Corpuscular Hemoglobin Concent 31.2 L, Red Cell Distribution Width 13.9, Neutrophils (%) (Auto) 80.6 H, Lymphocytes (%) (Auto) 12.6 L, Monocytes (% ) (Auto) 5.8 H, Eosinophils (%) (Auto) 0.0, Basophils (%) (Auto) 0.1, Neutrophils # (Auto) 7.3, Lymphocytes # (Auto) 1.1 L, Monocytes # (Auto) 0.5, Eosinophils # (Auto) 0.0, Basophils # (Auto) 0.0, Calcium Level 9.3 Microbiology Microbiology 03/28/17 Blood Culture - Preliminary, Resulted No Growth after 72 hours. All specime... 03/28/17 Blood Culture - Preliminary, Resulted No Growth after 72 hours. All specime... ZAKIA TRAVIS PA-C Apr 01, 2017 11:21 JAYLAN HUMPHRIES MD Apr 01, 2017 11:59
[2017-04-01] MEDS: ATORVASTATIN 20 MG TAB PO SCH (20:41)
[2017-04-01] MEDS: RAMIPRIL 5 MG CAP PO SCH (20:42)
[2017-04-01] MEDS: PANTOPRAZOLE 40MG INJ (PROTONIX) (C9113) IV SCH (20:43)
[2017-04-01] MEDS: POTASSIUM CHLORIDE 10 MEQ SR TABLET PO SCH (20:43)
[2017-04-01 22:00] VITALS: BP 130/60
[2017-04-02] MEDS: IPRATROPIUM 0.5MG/ALBUTEROL 2.5MG INH SOL UD 3ML (DUONEB)(J7620) NEB SCH ×6 (03:14→23:13)
[2017-04-02 06:00] VITALS: BP_SYST 104; BP_SYST 142; BP_DIAS 50; BP_DIAS 78
[2017-04-02 06:13] LABS: EOS % 0.1 % (0.0-3.0); IMMATURE GRANULOCYTE % 1.2 % (0-0); LYMPH % 12.9 % (24.0-44.0); MEAN CORPUSCULAR HEMOGLOBIN 28.3 pg (27.0-33.0); MEAN CORPUSCULAR VOLUME 91.2 fl (80.0-96.0); MONO # 0.3 10^3/uL (0.0-0.8); NEUTROPHILS # 6.3 10^3/uL (1.8-7.7); NEUTROPHILS % 81.8 % (36.0-66.0); PLATELET COUNT, AUTOMATED 339 10^3/uL (150-450); RED CELL DISTRIBUTION WIDTH 13.9 % (11.5-14.5); WHITE BLOOD COUNT 7.7 10^3/uL (4.0-10.0)
[2017-04-02 06:40] LABS: ANION GAP 6 MEQ/L (8-16); BLOOD UREA NITROGEN 31 MG/DL (7-18); CALCIUM LEVEL 8.9 MG/DL (8.8-10.2); CARBON DIOXIDE LEVEL 30 MEQ/L (21-32); CHLORIDE LEVEL 104 MEQ/L (98-107); CREATININE FOR GFR 0.67 MG/DL (0.55-1.02); GLOMERULAR FILTRATION RATE > 60.0 (>39); GLUCOSE, FASTING 185 MG/DL (83-110); POTASSIUM SERUM 4.7 MEQ/L (3.5-5.1); SODIUM LEVEL 140 MEQ/L (136-145)
[2017-04-02] MEDS: BUDESONIDE 0.5 MG/2 ML INHALATION SUSPENSION INH SCH ×2 (07:23→19:17)
[2017-04-02] MEDS: FORMOTEROL FUMARATE 20 MCG/2 ML INHALATION SOLUTION (PERFOROMIST) INH SCH ×2 (07:23→19:17)
[2017-04-02] MEDS: SENOKOT S TAB PO SCH ×2 (08:42→21:13)
[2017-04-02] MEDS: ENOXAPARIN 30 MG/0.3 ML SYR (J1650) SC SCH (08:42)
[2017-04-02] MEDS: DOXYCYCLINE HYCLATE 100 MG TAB PO SCH ×2 (08:42→21:13)
[2017-04-02] MEDS: PARoxetine 10MG TABLET PO SCH (08:42)
[2017-04-02] MEDS: predniSONE 20 MG TAB PO SCH ×2 (08:42→21:13)
[2017-04-02] MEDS: ASPIRIN 81 MG ENTERIC TAB PO SCH (08:43)
[2017-04-02] MEDS: guaiFENesin ER 600 MG TAB PO SCH (08:43)
[2017-04-02 14:00] VITALS: BP 141/65
--- NOTE | 2017-04-02 19:10 | IPNPDOC ---
Subjective Date Seen The patient was seen on 04/02/17. Subjective Chief Complaint/HPI The patient is a 71-year-old female admitted with a reason for visit of Copd Exacerbation;Pneumonia. Events since last encounter She reports that she is generally feeling well. She is requiring less oxygen than she was yesterday. She's been up and around walking on the floor today. She has not worked with physical therapy today on stairs. General: Reports: Normal Appetite Pulmonary: Denies: Pleuritic Chest Pain Cardiovascular: Denies: Chest Pain, Palpitations Psych: Reports: Mood Normal Objective Physical Examination General Exam: Positive: Alert, No Acute Distress, Other (frail and cachectic) Eye Exam: Positive: Conjunctiva & lids normal, Negative: Sclera icteric ENT Exam: Positive: Mucous membr. moist/pink Neck Exam: Negative: Lymphadenopathy Chest Exam: Positive: Clear to auscultation, Wheezing (there are occasional end expiratory wheezes noted in the bilateral posterior lung cavanaugh), Negative: Rales, Rhonchi Heart Exam: Positive: Regular Rhythm, Negative: Rate Normal, Murmurs Abdomen Exam: Positive: Normal bowel sounds, Soft, Negative: Tenderness Extremity Exam: Negative: Edema Psych Exam: Positive: Mood NL, Oriented x 3 Assessment /Plan Problems (1) COPD exacerbation Status: Acute Problem Text: She seems to be her baseline oxygen requirement while resting. When ambulating but has not done the stairs which were requirement for passage of her home safety evaluation per the physical therapy evaluation yesterday. It doesn't appear that she worked with physical therapy today. I asked nursing to assure that they come see her tomorrow. If she is able to pass the home safety tomorrow, I would anticipate discharging her. If not we will continue to work with her. Continue PO prednisone. Continue Pulmicort and Formoterol. Doxycycline D5. (2) Hypertension Status: Chronic Response to Treatment: Stable (3) Hyperthyroidism Status: Chronic Problem Text: Favor subclinical hyper TSH low/Free T4 slightly high - will need outpatient follow-up Plan/VTE VTE Prophylaxis Ordered?: Yes (Lovenox) Plan Therapy: PT, Home Safety Eval Anticipated Discharge: Home (as early as tomorrow if she is able to pass her home safety evaluation.) VS, I&O, 24H, Fishbone Vital Signs/I&O Vital Signs Date Time Temp Pulse Resp B/P (MAP) Pulse Ox O2 Delivery O2 Flow Rate FiO2 04/02/17 14:00 98.0 82 18 141/65 (90) 94 Nasal Cannula 2.0 03/29/17 08:00 50 I&O- Last 24 Hours up to 6 AM 04/03/17 06:00 Intake Total 460 ml Output Total 0 ml Balance 460 ml Laboratory Data 24H LABS Laboratory Tests 2 04/02/17 05:33: White Blood Count 7.7, Red Blood Count 3.75L, Hemoglobin 10.6L, Hematocrit 34.2L , Mean Corpuscular Volume 91.2, Mean Corpuscular Hemoglobin 28.3, Mean Corpuscular Hemoglobin Concent 31.0L, Red Cell Distribution Width 13.9, Platelet Count 339, Neutrophils (%) (Auto) 81.8H, Lymphocytes (%) (Auto) 12.9L, Monocytes (%) (Auto) 4.0, Eosinophils (%) (Auto) 0.1, Basophils (%) (Auto) 0.0, Neutrophils # (Auto) 6.3, Lymphocytes # (Auto) 1.0L, Monocytes # (Auto) 0.3, Eosinophils # (Auto) 0.0, Basophils # (Auto) 0.0, Immature Granulocyte # (Auto) 0.1H, Nucleated Red Blood Cells % (auto) 0.0, Anion Gap 6L, Glomerular Filtration Rate > 60.0, Blood Urea Nitrogen 31H, Creatinine 0.67, Sodium Level 140, Potassium Level 4.7, Chloride Level 104, Carbon Dioxide Level 30, Calcium Level 8.9 CBC/BMP Laboratory Tests 04/02/17 05:33 Red Blood Count 3.75 L, Mean Corpuscular Volume 91.2, Mean Corpuscular Hemoglobin 28.3, Mean Corpuscular Hemoglobin Concent 31.0 L, Red Cell Distribution Width 13.9, Neutrophils (%) (Auto) 81.8 H, Lymphocytes (%) (Auto) 12.9 L, Monocytes (%) (Auto) 4.0, Eosinophils (%) (Auto) 0.1, Basophils (%) ( Auto) 0.0, Neutrophils # (Auto) 6.3, Lymphocytes # (Auto) 1.0 L, Monocytes # ( Auto) 0.3, Eosinophils # (Auto) 0.0, Basophils # (Auto) 0.0, Calcium Level 8.9 Microbiology Microbiology 03/28/17 Blood Culture - Final, Complete NO GROWTH AFTER 5 DAYS 03/28/17 Blood Culture - Final, Complete NO GROWTH AFTER 5 DAYS Hamlet French MD Apr 02, 2017 19:10
[2017-04-02] MEDS: PANTOPRAZOLE 40MG INJ (PROTONIX) (C9113) IV SCH (21:11)
[2017-04-02 21:12] VITALS: BP 135/63
[2017-04-02] MEDS: RAMIPRIL 5 MG CAP PO SCH (21:12)
[2017-04-02] MEDS: POTASSIUM CHLORIDE 10 MEQ SR TABLET PO SCH (21:12)
[2017-04-02] MEDS: ATORVASTATIN 20 MG TAB PO SCH (21:12)
[2017-04-02 22:00] VITALS: BP 135/63
[2017-04-03] MEDS: IPRATROPIUM 0.5MG/ALBUTEROL 2.5MG INH SOL UD 3ML (DUONEB)(J7620) NEB SCH ×3 (04:03→11:57)
[2017-04-03 05:53] LABS: BASO % 0.1 % (0.0-1.0); EOS % 0.1 % (0.0-3.0); IMMATURE GRANULOCYTE % 0.7 % (0-0); LYMPH # 1.4 10^3/uL (1.5-4.5); LYMPH % 16.8 % (24.0-44.0); MEAN CORPUSCULAR HEMOGLOBIN 28.7 pg (27.0-33.0); MEAN CORPUSCULAR HGB CONC 31.7 g/dl (32.0-36.5); MEAN CORPUSCULAR VOLUME 90.7 fl (80.0-96.0); MONO # 0.4 10^3/uL (0.0-0.8); MONO % 4.7 % (0.0-5.0); NEUTROPHILS # 6.4 10^3/uL (1.8-7.7); NEUTROPHILS % 77.6 % (36.0-66.0); PLATELET COUNT, AUTOMATED 350 10^3/uL (150-450); RED CELL DISTRIBUTION WIDTH 13.9 % (11.5-14.5); WHITE BLOOD COUNT 8.3 10^3/uL (4.0-10.0)
[2017-04-03 06:00] VITALS: BP 108/52
[2017-04-03 06:16] LABS: ANION GAP 5 MEQ/L (8-16); BLOOD UREA NITROGEN 27 MG/DL (7-18); CALCIUM LEVEL 9.1 MG/DL (8.8-10.2); CARBON DIOXIDE LEVEL 31 MEQ/L (21-32); CHLORIDE LEVEL 104 MEQ/L (98-107); CREATININE FOR GFR 0.52 MG/DL (0.55-1.02); GLOMERULAR FILTRATION RATE > 60.0 (>39); GLUCOSE, FASTING 144 MG/DL (83-110); POTASSIUM SERUM 4.1 MEQ/L (3.5-5.1); SODIUM LEVEL 140 MEQ/L (136-145)
[2017-04-03] MEDS: FORMOTEROL FUMARATE 20 MCG/2 ML INHALATION SOLUTION (PERFOROMIST) INH SCH (07:26)
[2017-04-03] MEDS: BUDESONIDE 0.5 MG/2 ML INHALATION SUSPENSION INH SCH (07:26)
[2017-04-03] MEDS: SENOKOT S TAB PO SCH (08:36)
[2017-04-03] MEDS: predniSONE 20 MG TAB PO SCH (08:37)
[2017-04-03] MEDS: guaiFENesin ER 600 MG TAB PO SCH (08:37)
[2017-04-03] MEDS: ASPIRIN 81 MG ENTERIC TAB PO SCH (08:37)
[2017-04-03] MEDS: PARoxetine 10MG TABLET PO SCH (08:37)
[2017-04-03] MEDS: ENOXAPARIN 30 MG/0.3 ML SYR (J1650) SC SCH (08:37)
[2017-04-03] MEDS: DOXYCYCLINE HYCLATE 100 MG TAB PO SCH (08:37)
[2017-04-03] MEDS ORDERED: DOXY100T2 PO (12:33)
[2017-04-03] MEDS ORDERED: PRED20TA PO (12:33)
--- NOTE | 2017-04-03 12:35 | DS.PDOC ---
Discharge Summary General Date of Admission Mar 28, 2017 at 20:41 Date of Discharge 04/03/2017 Primary Care Physician: LEONARD KHAN Attending Physician: Hamlet French MD Discharge Summary ADMITTING DIAGNOSES: 1. COPD exacerbation. 2. Acute on chronic respiratory failure. 3. Hypertension. 4. Hyperlipidemia 5. Dysthymic disorder. 6. Protein calorie malnutrition, possibly pulmonary cachexia. 7. Abnormal T4 level. DISCHARGE DIAGNOSES: 1. COPD exacerbation. 2. Chronic respiratory failure. 3. Retention. 4. Subclinical hypothyroidism. PROCEDURES PERFORMED DURING STAY: None. ADMISSION HISTORY: Ms. Coughlin is a 71-year-old female with history of advanced emphysema and COPD on chronic home oxygen and chronic steroid therapy who had been having increasing shortness of breath for the four days prior to admission and inability to ambulate outside the room and has been sleeping more and almost unable to get out of bed. On the day of admission she could hardly walk three steps because of her shortness of breath. . Please see the admission history and physical for the remaining details. HOSPITAL COURSE: Ms. Coughlin was admitted to the hospital for a COPD exacerbation and started on IV steroids and increased rate of oxygen flow. Over the next several days she improved so that she was able to get down to her baseline of 2 L of oxygen at rest. However during activity she was still requiring increasing amounts of oxygen. One issue of particular concern was her home environment in that she needed to go up or down 22 stairs in order to get between her bedroom in her bathroom. On the day of discharge she worked with physical therapy and was able to do 8 stairs on her usual 2 L of oxygen. Her family will move her bed downstairs and she now only needs to go up 4-5 stairs in order to access the home. DISCHARGE CONDITION: Stable. FOLLOW-UP: Prior to discharge an appointment was scheduled Leonard Khan NP on at 11:15. DIET: As tolerated. ACTIVITY: As tolerated. DISCHARGE MEDICATIONS: Please see below. ALLERGIES: Please see below. LABORATORY DATA: Please see below. IMAGING: Chest x-ray, chest CT ITEMS TO FOLLOWUP ON ON OUTPATIENT: 1. She is on a steroid taper should go back to 10 mg of prednisone which is her chronic dose. 2. Suspected subclinical hyperthyroidism. 3. Underweight. Possibly secondary to pulmonary cachexia or hyperthyroidism. Vital Signs/I&Os Vital Signs Date Time Temp Pulse Resp B/P (MAP) Pulse Ox O2 Delivery O2 Flow Rate FiO2 04/03/17 06:00 96.9 55 17 108/52 (70) 98 Nasal Cannula 2.0 03/29/17 08:00 50 I&O- Last 24 Hours up to 6 AM 04/04/17 06:00 Intake Total 0 ml Output Total 0 ml Balance 0 ml Laboratory Data Labs 24H Laboratory Tests 2 04/03/17 05:27: Immature Granulocyte % (Auto) 0.7H, White Blood Count 8.3, Red Blood Count 3.76L , Hemoglobin 10.8L, Hematocrit 34.1L, Mean Corpuscular Volume 90.7, Mean Corpuscular Hemoglobin 28.7, Mean Corpuscular Hemoglobin Concent 31.7L, Red Cell Distribution Width 13.9, Platelet Count 350, Neutrophils (%) (Auto) 77.6H, Lymphocytes (%) (Auto) 16.8L, Monocytes (%) (Auto) 4.7, Eosinophils (%) (Auto) 0.1, Basophils (%) (Auto) 0.1, Neutrophils # (Auto) 6.4, Lymphocytes # (Auto) 1.4L, Monocytes # (Auto) 0.4, Eosinophils # (Auto) 0.0, Basophils # (Auto) 0.0, Immature Granulocyte # (Auto) 0.1H, Nucleated Red Blood Cells % (auto) 0.0, Anion Gap 5L, Glomerular Filtration Rate > 60.0, Blood Urea Nitrogen 27H, Creatinine 0.52L, Sodium Level 140, Potassium Level 4.1, Chloride Level 104, Carbon Dioxide Level 31, Calcium Level 9.1 CBC/BMP Laboratory Tests 04/03/17 05:27 Red Blood Count 3.76 L, Mean Corpuscular Volume 90.7, Mean Corpuscular Hemoglobin 28.7, Mean Corpuscular Hemoglobin Concent 31.7 L, Red Cell Distribution Width 13.9, Neutrophils (%) (Auto) 77.6 H, Lymphocytes (%) (Auto) 16.8 L, Monocytes (%) (Auto) 4.7, Eosinophils (%) (Auto) 0.1, Basophils (%) ( Auto) 0.1, Neutrophils # (Auto) 6.4, Lymphocytes # (Auto) 1.4 L, Monocytes # ( Auto) 0.4, Eosinophils # (Auto) 0.0, Basophils # (Auto) 0.0, Calcium Level 9.1 Microbiology Microbiology 03/28/17 Blood Culture - Final, Complete NO GROWTH AFTER 5 DAYS 03/28/17 Blood Culture - Final, Complete NO GROWTH AFTER 5 DAYS Discharge Medications Scheduled (Incruse Ellipta) 62.5 Mcg/Inh Inh, 62.5 MCG INH QPM, (Reported) (Paroxetine) 10 Mg Tab, 10 MG PO DAILY, (Reported) Aspirin (Aspirin) 81 Mg Tab, 81 MG PO DAILY, (Reported) Atorvastatin Calcium (Atorvastatin Calcium) 40 Mg Tab, 40 MG PO QPM, (Reported) Doxycycline Hyclate (Doxycycline Hyclate) 100 Mg Tab, 100 MG PO BID Fluticasone/Vilanterol (Breo Ellipta 200-25 Mcg/INH) 1 Inh Inh, 1 INH INH DAILY, (Reported) Guaifenesin (Mucinex) 600 Mg Tab, 600 MG PO DAILY, (Reported) Loratadine (Claritin) 10 Mg Tab, 10 MG PO DAILY, (Reported) Potassium Chloride (Klor-Con M10) 10 Meq Tabcr, 10 MEQ PO QPM, (Reported) Prednisone (Prednisone) 20 Mg Tab, 20 MG PO Q12H Take 20mg BID x 4 more days, then 20mg daily x 4 days, then resume 10mg daily (usual dose) Ramipril (Ramipril) 10 Mg Cap, 10 MG PO QPM, (Reported) Scheduled PRN Albuterol Sulfate (Albuterol Sulfate) 2.5 Mg/3 Ml Nebu, 2.5 MG INH TID PRN for SHORTNESS OF BREATH, (Reported) Albuterol Sulfate (Ventolin Hfa) 200 Puff/8 Gm Aers, 2 PUFF INH Q4H PRN for SHORTNESS OF BREATH, (Reported) Allergies Coded Allergies: Amoxicillin (Unverified Allergy, Intermediate, HIVES, 03/26/16) Clavulanic Acid (Unverified Allergy, Intermediate, HIVES, 03/26/16) Hamlet French MD Apr 03, 2017 12:35
== END 2017-04-03 15:16 | disposition home health service (06) | DRG 190 ==
LOC: M ED 16:59 → M ED INP 20:41 → M PCU 22:26 → M MSPAV 03-31 16:01
PROVIDERS: ADMIT Internal Medicine Nephrology; ATTEND Family Medicine
DX: J44.1 Chronic obstructive pulmonary disease with (acute) exacerbation (principal); J96.21 Acute and chronic respiratory failure with hypoxia; E46 Unspecified protein-calorie malnutrition; Z68.1 Body mass index [BMI] 19.9 or less, adult; Z99.81 Dependence on supplemental oxygen; Z79.52 Long term (current) use of systemic steroids; I10 Essential (primary) hypertension; E78.5 Hyperlipidemia, unspecified; E02 Subclinical iodine-deficiency hypothyroidism; F34.1 Dysthymic disorder; Z79.899 Other long term (current) drug therapy; Z79.82 Long term (current) use of aspirin; Z88.0 Allergy status to penicillin; Z88.8 Allergy status to other drugs, medicaments and biological substances; F17.210 Nicotine dependence, cigarettes, uncomplicated